=== PATIENT | female | born 1980 | race Asian ===

== ENCOUNTER 2020-03-07 12:12 | Emergency (ER) | payer OTHER, SELFPAY ==
[~2020-03-07] VITALS: Ht 157.5 cm; Wt 56.9 kg
--- NOTE | 2020-03-07 12:37 | NUR ---
ISOLATION/DROPLET PRECAUTIONS IN PLACE D/T RESP SX.
--- NOTE | 2020-03-07 12:45 | NUR ---
PULSE OX PLACED, RA 100%, HR 80S. PT IN PARTIAL TRIPOD POSITION WITH RAPID RR, STATING DIFFICULTY GETTING BREATH. DR CASTILLO INFORMED OF PT'S SOB, RAPID RR, CONDITION AND PROVIDED CHART.
[2020-03-07] MEDS ORDERED: OMNIPAQUE 350 MG/ML, 100ML BOTTLE ONE (12:57)
[2020-03-07] MEDS ORDERED: MORPHINE SULFATE 4 MG/ML, 1ML IVPush PRN (13:00)
[2020-03-07] MEDS ORDERED: SODIUM CHLORIDE FLUSH 10ML SYR IVF ONE (13:00)
--- NOTE | 2020-03-07 13:14 | NUR ---
IV PLACED, LABS DRAWN WITH START. PCXR AT BS. PT PLACED IN HIGH FOWLERS POSITION WITH SOME COMFORT. VS UPDATED IN COMPUTER. PT UPDATED ON POC.
[2020-03-07 13:28] LABS: BASOPHILS # (AUTO) 0.04 x10^3/uL (0-0.1); BASOPHILS % (AUTO) 1 % (0-1); EOSINOPHILS # (AUTO) 0.04 x10^3/uL (0-0.4); EOSINOPHILS % (AUTO) 1 % (1-7); LYMPHOCYTES # (AUTO) 3.57 x10^3/uL (1-3.4); LYMPHOCYTES % (AUTO) 53 % (22-44); MD NO; MEAN CORPUSCULAR HEMOGLOBIN 33.8 pg (27.0-34.8); MEAN CORPUSCULAR HGB CONC 34.3 g/dL (32.4-35.8); MEAN CORPUSCULAR VOLUME 98.5 fL (80-100); MEAN PLATELET VOLUME 7.1 fL (7.4-10.4); MONOCYTES # (AUTO) 0.36 x10^3/uL (0.2-0.8); MONOCYTES % (AUTO) 5 % (2-9); NEUTROPHILS # (AUTO) 2.79 x10^3/uL (1.8-6.8); NEUTROPHILS % (AUTO) 41 % (42-75); PLATELET COUNT 298 x10^3/uL (130-400); RED CELL DISTRIBUTION WIDTH 13.6 % (9.6-15.2)
[2020-03-07 13:39] LABS: ALANINE AMINOTRANSFERASE 24 U/L (12-78); ALBUMIN 4.3 g/dL (3.4-5.0); ANION GAP 11 mmol/L (5-15); CALCIUM 9.3 mg/dL (8.5-10.1); CHLORIDE 108 mmol/L (98-107); CREATININE 1.14 mg/dL (0.55-1.02)
[2020-03-07 13:43] LABS: ALKALINE PHOSPHATASE 51 U/L (45-117); BILIRUBIN,TOTAL 0.7 mg/dL (0.2-1.0); TOTAL PROTEIN 8.7 g/dL (6.4-8.2); TROPONIN I < 0.015 ng/mL (0.000-0.045)
[2020-03-07] MEDS ORDERED: LORazepam 0.5MG TABLET ONE (13:47)
[2020-03-07] MEDS ORDERED: LORazepam 2 MG/ML, 1ML IVPush ONE (14:00)
[2020-03-07] MEDS ORDERED: LORazepam 2 MG/ML, 1ML ONE (14:00)
--- NOTE | 2020-03-07 14:07 | NUR ---
PT OFFERED MORPHINE PREVIOUSLY WHICH SHE DECLINED. ATIVAN GIVEN IV PER ERP ORDER FOR INCREASED RR AND RESP DISTRESS. VSS, RA CONTINUES TO BE 100%. PT C/O NUMBNESS/TINGLING TO BILATERAL HANDS. PT ENCOURAGED TO TAKE SLOW DEEP BREATHS. PT STATES DIFFICULT D/T NASAL CONGESTION. PT ASSISTED UP TO BR, REQUIRING SBA D/T DIZZINESS. CALL LIGHT WITHIN REACH. AWAITING CT.
[2020-03-07] MEDS ORDERED: BIRTH CONTROL PO (14:14)
--- NOTE | 2020-03-07 14:15 | NUR ---
PT TO CT.
--- NOTE | 2020-03-07 14:45 | NUR ---
PT BACK FROM CT, INFORMED BE ATTORNEY LAWYER THAT SATS DROPPED TO 84% ON RA. OXYGEN PLACED BY TECH WITH SATS READING 100%. RR 29 AT THAT TIME. ERP NOTIFIED AND IN TO SEE PT AND REASSESS. OXYGEN REMOVED WITH PT ABLE TO KEEP 100% RA SATS AND SPEAK IN PARTIAL SENTENCES.
[2020-03-07] MEDS ORDERED: NS + 40MEQ KCL 1,000 ML IV SCH (15:00)
[2020-03-07] MEDS ORDERED: POTASSIUM CHLORIDE 20 MEQ TAB.ER.PRT PO ONE (15:00)
--- NOTE | 2020-03-07 15:26 | NUR ---
TASK RN: PT DESAT TO 71% ON RA. PT DROWSY WHEN THIS RN ENTERED ROOM. PLACED ON 4L NC INITIALLY, PT WOKE UP MORE AND WAS 100% ON 4L. PT NOW ABLE TO MAINTAIN SPO2 >95% ON 2L NC. SARAH SORENSEN UPDATED.
[2020-03-07 15:29] LABS: SALICYLATE LEVEL < 1.7 mg/dL (2.8-20.0)
[2020-03-07] MEDS ORDERED: POTASSIUM CHLORIDE 20 MEQ TAB.ER.PRT ONE (16:24)
[2020-03-07] MEDS ORDERED: NS + 40MEQ KCL 1,000 ML IV ONE (16:24)
[2020-03-07 16:30] LABS: ANION GAP 9 mmol/L (5-15); CALCIUM 7.9 mg/dL (8.5-10.1); CHLORIDE 109 mmol/L (98-107); CREATININE 1.05 mg/dL (0.55-1.02)
--- NOTE | 2020-03-07 16:45 | NUR ---
PT CONTINUES TO HAVE IMPROVED RR, WORK OF BREATHING. PT STATES SHE'S "FEELING A LOT BETTER". POTASSIUM PO GIVEN PER ERP ORDER. PT UPDATED ON RESULTS OF LABS, CT, ALL QUESTIONS ANSWERED. IV POTASSIUM STARTED, NOTED D/C IN NOTES SO HOLD ON POTASSIUM IV AT THIS TIME.
[2020-03-07 17:07] VITALS: BP 115/83
== END 2020-03-07 17:10 | disposition home or self-care (01) ==
LOC: ED 16:06
DX: E86.0 Dehydration (principal); Z20.828 Contact with and (suspected) exposure to other viral communicable diseases; R06.00 Dyspnea, unspecified; R20.0 Anesthesia of skin; R94.31 Abnormal electrocardiogram [ECG] [EKG]
CPT/HCPCS: 36415; 36600; 71045; 71275; 80048; 80053; 80307; 82803; 83605; 83735; 83880; 83930; 84484; 85025; 85379; 87635; 93005; 96374; 99285; J2060; Q9967; J3480